=== PATIENT | female | born 1955 | race Caucasian/White ===

== ENCOUNTER → 2017-10-15 03:14 | Outpatient (CLI) | payer BC, SELFPAY ==
[2017-10-15 16:14] LABS: Abs Immature Grans 0.01 k/cumm (0.0-0.09); Absolute Basophil Count 0.04 k/cumm (0.0-0.2); Absolute Eosinophil Count 0.27 k/cumm (0.0-0.7); Absolute Lymphocyte Count 2.09 k/cumm (1.2-3.4); Absolute Monocyte Count 0.57 k/cumm (0.11-0.7); Absolute Neutrophil Count 2.59 k/cumm (1.2-6.7); Basophils % 0.7; Eosinophils % 4.8; HCT 37.9 % (36.0-46.0); HGB 12.6 g/dL (12.0-15.5); Immature Grans % 0.2; Lymphocytes % 37.5; Mean Corp. HGB Concentration 33.2 g/dL (32.0-36.0); Mean Corpuscular Hemoglobin 31.3 pg (27.0-33.0); Mean Platelet Volume 9.5 fL (8.0-11.0); Monocytes % 10.2; Neutrophils % 46.6; Platelet Count 275 x1000/uL (130-400); RBC 4.03 m/cumm (4.00-5.20); RBC Distribution Width 12.9 % (11.7-14.6); White Blood Cell Count 5.57 k/cumm (4.4-10.8)
[2017-10-15 16:19] LABS: ALT 21 U/L (12-78); AST 23 U/L (15-37); Albumin 3.7 g/dL (3.4-5.0); Alkaline Phosphatase 94 U/L (46-116); Anion Gap 8.7 mmol/L (3-11); BUN 20 mg/dL (7-18); Bilirubin, Total 0.3 mg/dL (0.2-1.0); CO2 28.3 mmol/L (21.0-32.0); CREATININE 1.13 mg/dL (0.55-1.02); Calcium 9.3 mg/dL (8.5-10.1); Chloride 106 mmol/L (98-107); Estimated GFR 48.63 (mL/min/1.73m2); Glucose 95 mg/dL (70-100); Sodium 143 mmol/L (136-145); Total Protein 7.3 g/dL (6.4-8.2)
== END ==
PROVIDERS: PCP Family Medicine; Visit Provider Internal Medicine
DX: C50.911 Malignant neoplasm of unspecified site of right female breast (principal); Z17.0 Estrogen receptor positive status [ER+]
CPT/HCPCS: 36415; 80053; 85025

== ENCOUNTER 2017-10-27 14:55 | Outpatient (RCR) | payer BC, SELFPAY ==
--- NOTE | 2017-10-27 14:19 | IE_ITS ---
Date: October 27, 2017 Referring: Soila Stevenson M.D. M.D. Diagnosis: malignant neoplasm right female breast P.T. 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 She is s/p partial mastectomy/lumpectomy with one sentinel node removed from right axilla and completed radiation therapy February 05, 2017. She is presenting to the clinic today with tightness and pain in the right breast, primarily around surgical scars. Her goals for physical therapy are soft tissue manual therapy release for connective and scar tissue in order to improve right UE ROM and reduce pain in right breast. Pain Rating: Currently 0/10 right breast. Recently had sharp pain in the right breast, but his has resolved. Prior Level of Function: Prior to her diagnosis and surgery in 2016 she had no restrictions to the right breast and arm. Current Level of Function: Tightness with overhead reach with the right UE. Mild difficulty opening a jar with the right hand and performing recreational activities with her right hand, such as when playing racSocial [employer]. Stiffness noted in the right arm and breast region. Previous Treatment: None for this diagnosis. Social: The patient is very active at baseline. Is selling her home here, and will be moving to [place] in December. She is and performs recreational activities that she would like to return to. Comorbidities: Cataract removal with implant, cyst removal left sided neck, s/ p right partial medial menisectomy 08/07/16, sciatica, uveitis, seborrheic keratosis, cardiac murmur, right partial mastectomy/lumpectomy with right axilla sentinal node removal 11/17 Falls in the last year: __x__ No Reported hospitalizations in the last year - __x__ No Medications: Calcium, Angelique, Femara, Theragran, Anaprox and Protonics Tylenol Quality of Life: __x__ Excellent Standardized Measures: Disabilities of Arm Shoulder and Hand (DASH) score: __ 2.5% disability rating__ OBJECTIVE: Posture: The patient stands with good posture. Slight forward head and forward shoulders, but nothing significant. Observation: Right superior shoulder reveals a healed scar from rotator cuff surgery of the right shoulder. Right breast reveals an anterior scar at 11 o' clock position from right nipple. Right lateral breast reveals a scar at 9 to 10 o'clock from right nipple. Both scars are healed and closed without signs of infection or drainage. Palpation: The patient is tender throughout the right breast, particularly the right lateral breast scar. Tightness and decreased mobility is noted at the anterior right breast scar with some tenderness of anterior scar as well. Right breast does not appear edematous. Right axilla does not appear edematous. Right UE does not appear edematous. Edema: Circumferential measurements were taken due to patient's risk factors for right UE lymphedema. These were taken to get a baseline measurement and rule out lymphedema of the right UE. Measurements are as follows: Right UE Left UE Mid hand: 20 cm. 19 cm. Least wrist: 15.5 cm. 15 cm. 10: 20 cm. 21 cm. 20: 25 cm. 25 cm. 30: 26 cm. 28 cm. 40: 31 cm. 31.5 cm. Circumferential measurements indicate that patient does not have right UE lymphedema at this time. The patient is at risk due to right axilla sentinel node removal and radiation to the right breast and axilla. The patient was provided with the lymphedema educational packet, and educated regarding lymphedema risks and stages of lymphedema. At this point, she would be a stage zero. ROM:. Cervical spine AROM is WNL. Right UE reveals tightness at end range shoulder flexion and abduction through pectoral wall and right breast at areas of incisions and scars. Right elbow and hand WNL. Strength: Right shoulder 5/5 for flexion, abduction, biceps and triceps. Right mechanical integrity specialist strength 5/5. Neuro: Intact to light touch in proprioception throughout bilateral UEs. No neurological deficits at this time were noted. Treatment: Initial evaluation and assessment of patient's functional mobility. (IE: [id number] x1) Patient Education: The patient was provided with lymphedema educational packet and educated regarding risk factors for lymphedema including right axillary node sentinel removal and radiation to the right breast and axilla. The patient does not appear to have right UE lymphedema at this time, but is a stage zero due to her risk factors, and could develop lymphedema in the future. She verbalized understanding of all educational materials, and is aware to contact M.D. if swelling increases in the right arm. Manual therapy: Right scar massage to both scars at right breast. Myofascial release to right anterior scar at the right breast including chest wall and pectoralis region as well as right lateral scar at the right breast. Patient was instructed in scar massage techniques, circles, cross friction and gentle myofascial pulling with the palm of the hand through clock pattern. The patient is to perform a scar massage and self stretching 1x daily. She does have stretches she can follow up with s/p her lumpectomy/ partial mastectomy, and will perform those to improve right shoulder ROM and soft tissue flexibility through the right chest and pectoralis region. Direct treatment time: 60 minutes Total treatment time: 60 minutes ASSESSMENT: Patient is a 62-year-old female, referred for PT services with the diagnosis of malignant neoplasm of the right breast, s/p lumpectomy and sentinel node removal and s/p right partial mastectomy. Patient presents with clinical signs and symptoms consistent with scar adhesions and fascial restrictions through the right breast, particularly at scar regions superiorly and laterally, as demonstrated by the following impairment level findings: 1) tenderness to scar palpation 2) tightness through scar mobility 3) tightness with ROM of the right shoulder through right breast and scar region 4) difficulty using right arm for opening jars, performing racquetball and recreational activities 5) stiffness and pain in the right breast and right arm due to restrictions The patient does not appear to have right UE lymphedema, at this time, but does have risk factors due to her surgical intervention and radiation. The patient would benefit from skilled P.T. intervention to improve soft tissue mobility, scar mobility for myofascial release through the chest wall and right axilla and to improve her ROM and decrease her right shoulder and breast pain. Patient is assessed as: __x__ Low 12106 complexity, based on the following: History: See comorbidities and social history. Examination:: Right shoulder, right breast functional limitations as listed. Presentation: Stable Decision-Making: Low complexity 2.5 % Disability based on DASH Patient requires skilled PT intervention to remediate the above functional limitations to return to: __x__ Improve Quality of Life and her mobility GOALS STG: __1__ weeks. 1) patient independent with scar massage to the right breast scars anteriorly and laterally 2) patient independent with stretching program for the right shoulder and post op mastectomy/lumpectomy LTG: __2__ weeks. 1) patient with decreased pain and restriction through right breast with right shoulder mobility and use of right arm 2) patient independent with home management program for soft tissue mobilization right breast and scar incisions 3) patient return to premorbid level of function PLAN: Patient to be seen 2x per week, for 3 weeks, adjusting frequency of visits per patient symptoms and response to treatment. Treatment to include: Manual therapy - 79586 - scar massage, soft tissue mobilization, myofascial release, ROM of the right shoulder, IASTM if applicable Therapeutic exercise - 62827 - right shoulder ROM and stretching. Self care training for home management program for above. Thank you for this referral. Please do not hesitate to contact me with any questions or concerns regarding this patient's plan of care. Devika Thompson PT, CLT
== END 2017-10-31 23:59 | disposition home or self-care (01) ==
LOC: PT 14:55
PROVIDERS: PCP Family Medicine; Referring Provider Radiology Radiation Oncology; Visit Provider Radiology Radiation Oncology
DX: L76.82 Other postprocedural complications of skin and subcutaneous tissue (principal); L90.5 Scar conditions and fibrosis of skin; Y83.8 Other surgical procedures as the cause of abnormal reaction of the patient, or of later complication, without mention of misadventure at the time of the procedure
CPT/HCPCS: 97161

== ENCOUNTER 2017-12-11 14:48 | Outpatient (CLI) | payer BC, SELFPAY ==
[2017-12-11 15:21] LABS: Abs Immature Grans 0.01 k/cumm (0.0-0.09); Absolute Basophil Count 0.02 k/cumm (0.0-0.2); Absolute Lymphocyte Count 0.55 k/cumm (1.2-3.4); Absolute Monocyte Count 0.03 k/cumm (0.11-0.7); Absolute Neutrophil Count 5.85 k/cumm (1.2-6.7); Basophils % 0.3; HGB 13.5 g/dL (12.0-15.5); Immature Grans % 0.2; Lymphocytes % 8.5; Mean Corp. HGB Concentration 33.8 g/dL (32.0-36.0); Mean Corpuscular Hemoglobin 31.8 pg (27.0-33.0); Mean Corpuscular Volume 94.3 fL (80-95); Mean Platelet Volume 9.4 fL (8.0-11.0); Monocytes % 0.5; Neutrophils % 90.5; Platelet Count 256 x1000/uL (130-400); RBC 4.24 m/cumm (4.00-5.20); RBC Distribution Width 12.8 % (11.7-14.6); White Blood Cell Count 6.46 k/cumm (4.4-10.8)
[2017-12-11 15:33] LABS: ALT 23 U/L (12-78); AST 27 U/L (15-37); Albumin 3.8 g/dL (3.4-5.0); Alkaline Phosphatase 112 U/L (46-116); Anion Gap 8.2 mmol/L (3-11); BUN 25 mg/dL (7-18); Bilirubin, Total 0.5 mg/dL (0.2-1.0); CO2 27.8 mmol/L (21.0-32.0); CREATININE 0.98 mg/dL (0.55-1.02); Calcium 9.9 mg/dL (8.5-10.1); Chloride 104 mmol/L (98-107); Estimated GFR 57.14 (mL/min/1.73m2); Glucose 130 mg/dL (70-100); Potassium 4.2 mmol/L (3.5-5.1); Sodium 140 mmol/L (136-145); Total Protein 7.6 g/dL (6.4-8.2)
== END 2017-12-11 15:08 ==
PROVIDERS: PCP Family Medicine; Visit Provider Nurse Practitioner Adult Health
DX: C50.911 Malignant neoplasm of unspecified site of right female breast (principal); Z17.0 Estrogen receptor positive status [ER+]
CPT/HCPCS: 36415; 80053; 85025

== ENCOUNTER 2019-08-31 09:15 | Outpatient (CLI) | payer OTHER, SELFPAY ==
[2019-09-02 22:29] LABS: SARS-CoV-2 RNA Undetected (Undetected); SARS-CoV-2 Specimen Source Nasopharynx
== END 2019-08-31 09:35 ==
PROVIDERS: PCP Family Medicine; Visit Provider Family Medicine
DX: Z03.818 Encounter for observation for suspected exposure to other biological agents ruled out (principal)
CPT/HCPCS: U0003

== ENCOUNTER 2024-10-22 19:27 | Outpatient (REF) | payer OTHER, SELFPAY | END 2024-10-22 19:28 | disposition home or self-care (01) | LOC: LBN 19:27 | PROVIDERS: PCP Family Medicine; Visit Provider Nurse Practitioner Family | DX: N30.01 Acute cystitis with hematuria (principal) | CPT/HCPCS: 87086 ==